=== PATIENT | male | born 1970 | race Two or more races ===

== ENCOUNTER 2018-12-05 13:15 | Emergency (ER) | payer MEDICARE, MEDICAID ==
[~2018-12-05] VITALS: Ht 167.6 cm; Wt 68.0 kg
--- NOTE | 2018-12-05 13:17 | NUR ---
ED Nurse Note: Pt BIBA due to syncope episode at the adult daycare. Staff members stated that he fainted for 1 min but pt denies. Pt states that he has a bad rt knee and rating the pain a 6/10. Non raditaing. A + O x4. Ambulatory. Skin warm to touch. Pt has a hx of DM and HTN.
[2018-12-05 13:19] VITALS: BP 167/92
--- NOTE | 2018-12-05 13:33 | NUR ---
ED Nurse Note: Xray at the bedside
[2018-12-05 13:54] LABS: BASOPHILS % (AUTO) 0.8 % (0.0-2.0); EOSINOPHILS % (AUTO) 0.2 % (0.0-3.0); HEMOGLOBIN 13.6 G/DL (14.2-18.0); LYMPHOCYTES % (AUTO) 17.3 % (20.0-45.0); MEAN CORPUSCULAR VOLUME 81 FL (80-99); MONOCYTES % (AUTO) 5.5 % (1.0-10.0); NEUTROPHILS % (AUTO) 76.2 % (45.0-75.0); PLATELET COUNT 227 K/UL (150-450); RED BLOOD COUNT 5.33 M/UL (4.70-6.10); RED CELL DISTRIBUTION WIDTH 14.1 % (11.6-14.8); WHITE BLOOD COUNT 7.3 K/UL (4.8-10.8)
[2018-12-05 14:10] LABS: ANION GAP 9 mmol/L (5-15); BLOOD UREA NITROGEN 24 mg/dL (7-18); CALCIUM 9.6 MG/DL (8.5-10.1); CARBON DIOXIDE 27 MMOL/L (21-32); CHLORIDE 102 MMOL/L (98-107); POTASSIUM 4.6 MMOL/L (3.5-5.1); SODIUM 138 MMOL/L (136-145)
[2018-12-05 14:24] LABS: ALANINE AMINOTRANSFERASE 58 U/L (12-78); ALBUMIN 3.2 G/DL (3.4-5.0); ALBUMIN/GLOBULIN RATIO 0.8 (1.0-2.7); ALKALINE PHOSPHATASE 80 U/L (46-116); ASPARTATE AMINO TRANSFERASE 37 U/L (15-37); BILIRUBIN,TOTAL 0.2 MG/DL (0.2-1.0); CKMB 11.7 NG/ML (0.0-3.6); CREATINE KINASE 345 U/L (26-308)
[2018-12-05 14:24] LABS: APPEARANCE,URINE CLEAR; BILIRUBIN, URINE NEGATIVE (NEGATIVE); COLOR,URINE PALE YELLOW; GLUCOSE, URINE (UA) 4+ (NEGATIVE); KETONES,URINE NEGATIVE (NEGATIVE); LEUKOCYTE ESTERASE ,URINE NEGATIVE (NEGATIVE); NITRITE,URINE NEGATIVE (NEGATIVE); PH,URINE 5 (4.5-8.0); PROTEIN,URINE 3+ (NEGATIVE); UROBILINOGEN,URINE NORMAL MG/DL (0.0-1.0)
[2018-12-05 14:50] VITALS: BP 170/94
--- NOTE | 2018-12-05 15:26 | Emergency Room Report ---
History of Present Illness General Chief Complaint: Syncope Source: Patient Present Illness HPI Patient presents emergency department today complaining of a fall. Patient states that his right knee became weak and he fell forward. He denies loss consciousness palpitations or chest pain or head trauma. Patient by standards however was noted to have possible syncope. Patient was brought here by the paramedics. Patient emphatically denies that he had a syncopal event. No other complaints are noted. This never happened before. Patient states he does get weak occasionally but has never had any cardiac issues. Symptoms noted to be moderate moderate. Denies any seizure activity or weakness or focal weakness. No other modifying factors. No other associated signs and symptoms. No other complaints were noted. Allergies: Coded Allergies: No Known Allergies (Unverified , 12/05/18) Patient History Past Medical History: other - Angina, MS Past Surgical History: none Pertinent Family History: none Social History: Denies: smoking, alcohol use, drug use Reviewed Nursing Documentation: PMH: Agreed; PSxH: Agreed Nursing Documentation-PMH Hx Cardiac Problems: Yes - angina, MS, athersclerosis of aorta Hx Diabetes: Yes Review of Systems All Other Systems: negative except mentioned in HPI Physical Exam Vital Signs Date Time Temp Pulse Resp B/P (MAP) Pulse Ox O2 Delivery O2 Flow Rate FiO2 12/05/18 13:08 98.4 93 16 163/53 95 Room Air Sp02 EP Interpretation: reviewed, normal General Appearance: normal inspection, well appearing, no apparent distress, alert Head: atraumatic Eyes: bilateral eye normal inspection ENT: normal ENT inspection, hearing grossly normal, normal voice Neck: normal inspection, full range of motion, supple, no bony tend Respiratory: normal inspection, lungs clear, normal breath sounds, no respiratory distress, no retraction, no wheezing Cardiovascular #1: regular rate, rhythm, no edema Gastrointestinal: normal inspection, normal bowel sounds, non tender, soft, no guarding, no hernia Genitourinary: no CVA tenderness Musculoskeletal: normal inspection, back normal, normal range of motion, tender - Right knee Neurologic: normal inspection, alert, responsive, speech normal Psychiatric: normal inspection, judgement/insight normal, mood/affect normal Skin: normal inspection, normal color, no rash Medical Decision Making Diagnostic Impression: Primary Impression: Strain of knee and leg, right Additional Impression: Fall ER Course Patient presents emergency department today with fall and possible syncope. Differential diagnoses include acute CVA, acute electrolyte abnormality, acute arrhythmia, acute syncope, vasovagal episode as well as fall. Patient exam showed benign but given this history of possible syncope laboratory workup was obtained. Laboratory workup was noted to be negative. X-ray of patient's right knee was also negative. I offered admit patient for observation but he declined. Patient is very adamant about not having syncopal event. States that he only fell. Given that this is patient's presentation patient's is at bedside who agrees with the patient and wants patient to be discharged. Therefore we will discharge patient's 's care.Patient is advised to follow up with primary doctor in 2-3 days and return the emergency room for any worsening symptoms and as needed. Labs Test 12/05/18 13:30 12/05/18 13:50 White Blood Count 7.3 K/UL (4.8-10.8) Red Blood Count 5.33 M/UL (4.70-6.10) Hemoglobin 13.6 G/DL (14.2-18.0) Hematocrit 43.0 % (42.0-52.0) Mean Corpuscular Volume 81 FL (80-99) Mean Corpuscular Hemoglobin 25.5 PG (27.0-31.0) Mean Corpuscular Hemoglobin Concent 31.5 G/DL (32.0-36.0) Red Cell Distribution Width 14.1 % (11.6-14.8) Platelet Count 227 K/UL (150-450) Mean Platelet Volume 7.6 FL (6.5-10.1) Neutrophils (%) (Auto) 76.2 % (45.0-75.0) Lymphocytes (%) (Auto) 17.3 % (20.0-45.0) Monocytes (%) (Auto) 5.5 % (1.0-10.0) Eosinophils (%) (Auto) 0.2 % (0.0-3.0) Basophils (%) (Auto) 0.8 % (0.0-2.0) Sodium Level 138 MMOL/L (136-145) Potassium Level 4.6 MMOL/L (3.5-5.1) Chloride Level 102 MMOL/L (98-107) Carbon Dioxide Level 27 MMOL/L (21-32) Anion Gap 9 mmol/L (5-15) Blood Urea Nitrogen 24 mg/dL (7-18) Creatinine 1.0 MG/DL (0.55-1.30) Estimat Glomerular Filtration Rate > 60 mL/min (>60) Glucose Level 394 MG/DL (74-106) Calcium Level 9.6 MG/DL (8.5-10.1) Total Bilirubin 0.2 MG/DL (0.2-1.0) Aspartate Amino Transf (AST/SGOT) 37 U/L (15-37) Alanine Aminotransferase (ALT/SGPT) 58 U/L (12-78) Alkaline Phosphatase 80 U/L (46-116) Total Creatine Kinase 345 U/L (26-308) Creatine Kinase MB 11.7 NG/ML (0.0-3.6) Creatine Kinase MB Relative Index 3.3 Troponin I 0.000 ng/mL (0.000-0.056) Pro-B-Type Natriuretic Peptide 38 pg/mL (0-125) Total Protein 7.4 G/DL (6.4-8.2) Albumin 3.2 G/DL (3.4-5.0) Globulin 4.2 g/dL Albumin/Globulin Ratio 0.8 (1.0-2.7) Lipase 70 U/L (73-393) Urine Color Pale yellow Urine Appearance Clear Urine pH 5 (4.5-8.0) Urine Specific [place] 1.015 (1.005-1.035) Urine Protein 3+ (NEGATIVE) Urine Glucose (UA) 4+ (NEGATIVE) Urine Ketones Negative (NEGATIVE) Urine Blood 3+ (NEGATIVE) Urine Nitrite Negative (NEGATIVE) Urine Bilirubin Negative (NEGATIVE) Urine Urobilinogen Normal MG/DL (0.0-1.0) Urine Leukocyte Esterase Negative (NEGATIVE) Urine RBC 5-10 /HPF (0 - 0) Urine WBC 0 /HPF (0 - 0) Urine Squamous Epithelial Cells Occasional /LPF Urine Bacteria Occasional /HPF (NONE) EKG Diagnostic Results Rate: normal Rhythm: NSR ST Segments: no acute changes Rhythm Strip Diag. Results EP Interpretation: yes Rate: 87 Rhythm: NSR, no PVC's, no ectopy Chest X-Ray Diagnostic Results Chest X-Ray Diagnostic Results : Chest X-Ray Ordered: Yes # of Views/Limited/Complete: 1 View Indication: Other - Syncope EP Interpretation: Yes Interpretation: no consolidation, no effusion, no pneumothorax, no acute cardiopulmonary disease Impression: No acute disease Electronically Signed by: Electronically signed by Marcus Mclaughlin MD Last Vital Signs Date Time Temp Pulse Resp B/P (MAP) Pulse Ox O2 Delivery O2 Flow Rate FiO2 12/05/18 14:50 98.4 95 23 170/94 100 Room Air Status: improved Disposition: HOME, SELF-CARE Condition: Stable Scripts Unable to Obtain Active Prescriptions or Reported Meds Patient Instructions: Fall Prevention in the Home, [id number], Knee Sprain Marcus Mclaughlin MD Dec 05, 2018 15:26
[2018-12-05 15:30] VITALS: BP 170/94
--- NOTE | 2018-12-05 15:30 | NUR ---
ED Nurse Note: Discharge instructions given to pt. Answered all questions. Verbalized understanding. No acute distress noted. ID band and IV site removed. Left ER w/ a steady gait and all belongings.
--- NOTE | 2018-12-05 16:07 | Diagnostic Imaging Report ---
Indication: Cough Technique: One view of the chest Comparison: none Findings: Inspiration is suboptimal. There are atelectatic changes at both lung bases. The heart size is normal. Impression: No acute process Bilateral basilar atelectatic changes This agrees with the preliminary interpretation provided by the emergency room physician
--- NOTE | 2018-12-05 17:11 | Diagnostic Imaging Report ---
Indication: Right knee pain Technique: 3 views of the knee Comparison: None Findings: Bony alignment is normal. No suprapatellar effusion. No acute fractures or dislocations. Joint spaces are preserved Impression: Negative This agrees with the preliminary interpretation provided by the emergency room physician
--- NOTE | 2018-12-06 17:00 | Cardiology Report ---
APPROVED REPORT EKG Measurement Heart [id number] Sinus rhythm with 1st degree AV block Left axis deviation Voltage criteria for left ventricular hypertrophy Abnormal ECG
== END 2018-12-05 15:30 | disposition home or self-care (01) ==
LOC: EDBD 13:15 → EMR 13:45
DX: S86.911A Strain of unspecified muscle(s) and tendon(s) at lower leg level, right leg, initial encounter (principal); W19.XXXA Unspecified fall, initial encounter; Y92.9 Unspecified place or not applicable; E11.9 Type 2 diabetes mellitus without complications; R55 Syncope and collapse; I70.0 Atherosclerosis of aorta
CPT/HCPCS: 36415; 71045; 80053; 81003; 82550; 82553; 83690; 83880; 84484; 85025; 93005; 99284